=== PATIENT | male | born 1970 | race Caucasian/White ===

== ENCOUNTER 2017-07-19 14:31 | Inpatient (IN) | payer MEDICAID ==
[2017-07-19 14:34] VITALS: BP 190/93; PULSE 55; RESP 20; TEMP 97.3; O2SAT 100
[2017-07-19] MEDS ORDERED: SODIUM CHLOR 0.9% 1000 ML INJ 1,000 ML IV ONE ×2 (14:42→15:00)
--- NOTE | 2017-07-19 14:56 | PD ---
HPI . Stroke alert Chief Complaint: Stroke Alert Time Seen by Provider: 14:38 Travel History International Travel<30 days: No Contact w/Intl Traveler<30days: No Traveled to known affect area: No History of Present Illness HPI Patient presents ambulatory with the chief complaint of dizziness, nausea/ vomiting and left-sided weakness. Onset was 1 hour prior to presentation. Symptoms have persisted since that time. Symptoms are mild. He states that he has taken aspirin prior to presentation. There have been no modifying factors. He reports a history of hypertension and states that he is compliant with his antihypertensives. [facility] Past Medical History Medical History: Denies Significant Hx Past Surgical History Appendectomy: Yes Other Surgery: Yes (KNEE SURGERIES ) Social History Alcohol Use: No Tobacco Use: No Substance Use: No Allergies-Medications (Allergen,Severity, Reaction): Coded Allergies: Penicillins (Verified Allergy, Unknown, 07/19/17) Review of Systems Except as stated in HPI: all other systems reviewed are Neg Eyes: No: Blurred Vision HENT: Positive: Lightheadedness, No: Headaches Cardiovascular: No: Chest Pain or Discomfort Respiratory: No: Shortness of Breath Gastrointestinal: Positive: Nausea, Vomiting Neurologic: Positive: Weakness, Focal Abnormalities, No: Ataxia, Headache, Change in Mentation, Slurred Speech, Paresthesia Physical Exam Narrative GENERAL: Awake and alert. He does not look like he feels very well. SKIN: warm/dry. HEAD: Normocephalic. Atraumatic. EYES: Pupils equal and round. Extraocular movements are intact. No scleral icterus. No injection or drainage. ENT: No nasal bleeding or discharge. Mucous membranes pink and moist. NECK: Trachea midline. Full range of motion without pain.. CARDIOVASCULAR: Regular rate and rhythm. Heart sounds are normal. RESPIRATORY: No accessory muscle use. Clear to auscultation. Breath sounds equal bilaterally. MUSCULOSKELETAL: No obvious deformities. NEUROLOGICAL: Awake and alert. Very mild left-sided facial weakness with smiling. Wrinkling his forehead, closing his eyes and protruding his tongue are all symmetric. Services Manager strength on the left are 4+ out of 5 as compared to the right which is 5 out of 5. Leg strength is similar. He has very mild left lower extremity weakness. Babinski's are downgoing. When testing pronator drift, he slowly lowers his left arm but there is no pronator drift. PSYCHIATRIC: Appropriate mood and affect; insight and judgment normal. Data Data Last Documented VS Vital Signs Date Time Temp Pulse Resp B/P (MAP) Pulse Ox O2 Delivery O2 Flow Rate FiO2 07/19/17 14:34 97.3 55 20 190/93 (125) 100 Orders Orders Diet Npo (07/19/17 Dinner) Activity Bed Rest (07/19/17 ) Electrocardiogram (07/19/17 ) I-Stat Profile (07/19/17 14:42) Prothrombin Time / Inr (Pt) (07/19/17 14:42) Act Partial Throm Time (Ptt) (07/19/17 14:42) Complete Blood Count With Diff (07/19/17 14:42) Fibrinogen (07/19/17 14:42) Troponin I (07/19/17 14:42) Ua Includes Microscopic (07/19/17 14:42) Type And Screen (07/19/17 14:42) Ct Brain W/O Iv Contrast(Rout) (07/19/17 ) Consult Neurology (07/19/17 ) Blood Glucose (07/19/17 14:42) Ecg Monitoring (07/19/17 14:42) Neuro Checks Q2HX12,Q4H (07/19/17 14:42) Nursing Bedside Swallow Assess .ONCE (07/19/17 14:42) Iv Access Insert/Monitor (07/19/17 14:42) NPO (07/19/17 14:42) Oximetry (07/19/17 14:42) Resp Oxygen Nc Stroke (07/19/17 ) Sodium Chlor 0.9% 1000 Ml Inj (Ns 1000 M (07/19/17 14:42) Sodium Chlor 0.9% 1000 Ml Inj (Ns 1000 M (07/19/17 15:00) Cta Brain W Iv Contrast W 3d (07/19/17 14:46) Cta Neck W Iv Contrast W 3d (07/19/17 14:46) Iodixanol 320 Inj (Rad Ct) (Visipaque 32 (07/19/17 15:09) (Hub Use Only)Inp Phy Cons/Ref (07/19/17 ) Labs Laboratory Tests Test 07/19/17 14:45 White Blood Count 12.4 TH/MM3 Red Blood Count 5.24 MIL/MM3 Hemoglobin 15.4 GM/DL Bedside Hemoglobin 15.6 G/DL Hematocrit 44.9 % Bedside Hematocrit 46.0 % Mean Corpuscular Volume 85.7 FL Mean Corpuscular Hemoglobin 29.4 PG Mean Corpuscular Hemoglobin Concent 34.3 % Red Cell Distribution Width 13.3 % Platelet Count 321 TH/MM3 Mean Platelet Volume 8.1 FL Neutrophils (%) (Auto) 70.5 % Lymphocytes (%) (Auto) 21.2 % Monocytes (%) (Auto) 6.5 % Eosinophils (%) (Auto) 1.4 % Basophils (%) (Auto) 0.4 % Neutrophils # (Auto) 8.7 TH/MM3 Lymphocytes # (Auto) 2.6 TH/MM3 Monocytes # (Auto) 0.8 TH/MM3 Eosinophils # (Auto) 0.2 TH/MM3 Basophils # (Auto) 0.1 TH/MM3 CBC Comment DIFF FINAL Differential Comment Bedside Sodium 141 MMOL/L Bedside Potassium 4.6 MMOL/L Bedside Chloride 106 MMOL/L Bedside Blood Urea Nitrogen 18 MG/DL Bedside Creatinine 0.7 MG/DL Bedside Glucose 101 MG/DL [facility] Medical Screen Exam Complete: Yes Emergency Medical Condition: Yes Medical Record Reviewed: Yes (He has had no prior visits here) Differential Diagnosis Differential diagnosis includes but is not limited to TIA, CVA, brain tumor, migraine, anxiety Narrative Course Patient presents ambulatory with the chief complaint of dizziness, nausea/ vomiting and left-sided weakness. Onset was 1 hour prior to presentation. Symptoms have persisted since that time. Symptoms are mild. He states that he has taken aspirin prior to presentation. There have been no modifying factors. He reports a history of hypertension and states that he is compliant with his antihypertensives. The patient was seen in radiology by Dr. Soria. Critical Care Narrative Aggregate critical care time was 35 minutes. Time to perform other separately billable procedures was not included in the critical care time. My time did not include minutes spent treating any other patients simultaneously or on activities that did not directly contribute to the patient's treatment. The services I provided to this patient were to treat and/or prevent clinically significant deterioration due to possible stroke I provided critical care services requiring my management, as noted below: Chart data review, documentation time, medication orders and management, vital sign assessments/reviewing monitor data, ordering and reviewing lab tests, ordering and interpreting/reviewing x-rays and diagnostic studies, care of the patient and discussion of the patient with the admitting physicians Stroke Alert NIHSS NIH Stroke Scale Result: 4 NIHSS Time Completed: 14:39 Procedures Interpretation(s) EKG shows a normal sinus rhythm with no acute ischemic changes Physician Communication Physician Communication Dr. Soria was called immediately. He has requested a fluid bolus as well as a CTA of his head and neck. Those have all been ordered. He reports that he is on his way to see the patient. Diagnosis Diagnosis: Primary Impression: Left-sided weakness Admitting Physician Requests: Admit Condition: Stable Kacie Acosta MD Jul 19, 2017 14:56
--- NOTE | 2017-07-19 15:06 | RADRPT ---
EXAM DATE/TIME: 07/19/2017 14:53 [facility] COMPARISON: No previous studies available for comparison. INDICATIONS : Left sided weakness, facial droop RADIATION DOSE: 38.66 CTDIvol (mGy) This report was called by Stacey to Dr. Acosta at 1503 MEDICAL HISTORY : None SURGICAL HISTORY : None. ENCOUNTER: Initial ACUITY: 1 day PAIN SCALE: 0/10 LOCATION: cranial TECHNIQUE: Multiple contiguous axial images were obtained of the head. Using automated exposure control and adj ustment of the mA and/or kV according to patient size, radiation dose was kept as low as reasonably a chievable to obtain optimal diagnostic quality images. DICOM format image data is available electro nically for review and comparison. FINDINGS: CEREBRUM: The ventricles are normal for age. No evidence of midline shift, mass lesion, hemorrhage or acute in farction. No extra-axial fluid collections are seen. POSTERIOR FOSSA: The cerebellum and brainstem are intact. The 4th ventricle is midline. The cerebellopontine angle i s unremarkable. EXTRACRANIAL: The visualized portion of the orbits is intact. SKULL: The calvaria is intact. No evidence of skull fracture. CONCLUSION: No acute disease. Ramses Salomon MD on July 19, 2017 at 15:01 Board Certified Radiologist. This report was verified electronically.
[2017-07-19] MEDS ORDERED: IODIXANOL 320 MG/ML 10 ML VIAL (for Rad CT) IVCONTRAST ONE (15:09)
[2017-07-19 15:14] LABS: AUTOMATED NEUTROPHIL # 8.7 TH/MM3 (1.8-7.7); BASOPHIL # 0.1 TH/MM3 (0-0.2); BASOPHIL % 0.4 % (0.0-2.0); EOSINOPHIL # 0.2 TH/MM3 (0-0.4); EOSINOPHIL % 1.4 % (0.0-4.0); HEMATOCRIT 44.9 % (39.0-51.0); HEMOGLOBIN 15.4 GM/DL (13.0-17.0); LYMPH % 21.2 % (9.0-44.0); LYMPHOCYTE # 2.6 TH/MM3 (1.0-4.8); MEAN CELL VOLUME 85.7 FL (80.0-100.0); MEAN CORPUSCULAR HEMOGLOBIN 29.4 PG (27.0-34.0); MEAN CORPUSCULAR HGB CONC 34.3 % (32.0-36.0); MEAN PLATELET VOLUME 8.1 FL (7.0-11.0); MONO % 6.5 % (0.0-8.0); MONOCYTE # 0.8 TH/MM3 (0-0.9); NEUT % 70.5 % (16.0-70.0); PLATELET COUNT 321 TH/MM3 (150-450); RED BLOOD COUNT 5.24 MIL/MM3 (4.50-5.90); RED CELL DISTRIBUTION WIDTH 13.3 % (11.6-17.2); WHITE BLOOD COUNT 12.4 TH/MM3 (4.0-11.0)
--- NOTE | 2017-07-19 15:19 | RADRPT ---
EXAM DATE/TIME: 07/19/2017 14:53 [facility] COMPARISON: No previous studies available for comparison. INDICATIONS : Left sided weakness, facial droop IV CONTRAST: 71 cc Visipaque (iodixanol) IV ; Cumulative dose for multiple exams. RADIATION DOSE: 28.86 CTDIvol (mGy) ; Combined studies MEDICAL HISTORY : None SURGICAL HISTORY : None. ENCOUNTER: Initial ACUITY: 1 day PAIN SCALE: 0/10 LOCATION: cranial TECHNIQUE: Volumetric scanning was performed using a multi-row detector CT scanner. The data was post processed with a variety of visualization algorithms including full volume maximum intensity projection, multi -planar sliding thin slab reformation, curved planar reformation, and surface rendering techniques. Using automated exposure control and adjustment of the mA and/or kV according to patient size, radiat ion dose was kept as low as reasonably achievable to obtain optimal diagnostic quality images. DICO M format image data is available electronically for review and comparison. FINDINGS: Anterior circulation: Distal intracranial internal carotid arteries are patent with flow extending to the middle and anteri or cerebral arteries. There is no evidence for aneurysm, vessel truncation or stenosis, and no eviden ce for vascular malformation. Posterior circulation: Symmetric distal vertebral arteries with flow extending to basilar artery. There is no evidence for aneurysm, vessel truncation or stenosis, and no evidence for vascular malformation. CONCLUSION: 1. Unremarkable head CTA examination. Specifically, no evidence of large vessel occlusion. Samson Vinson MD on July 19, 2017 at 15:14 Board Certified Radiologist. This report was verified electronically.
[2017-07-19] MEDS: SODIUM CHLOR 0.9% 1000 ML INJ 1,000 ML IV SCH (15:22)
[2017-07-19 15:26] VITALS: PULSE 58; RESP 18; O2SAT 100
[2017-07-19 15:27] LABS: TROPONIN I LESS THAN 0.02 NG/ML (0.02-0.05)
--- NOTE | 2017-07-19 15:29 | HHI.HP ---
[facility] Service Family Medicine Primary Care Physician Unknown Admission Diagnosis Diagnoses: International Travel<30 Days: No Contact w/Intl Traveler<30days: No Known Affected Area: No History of Present Illness The patient is a pleasant 46 year old man brought to the ED for evaluation of lightheadedness and dizziness. The patient states he was driving to a job interview earlier today a little before 13:00 when he started to feel dizzy. He states this resolved until he arrived at that site and he began to feel more dizzy and lightheaded so he got back into his truck in the passenger side and called his . He states he must have lost consciousness in the truck and the next thing he remembers he was being driven to the ED. He remembers someone asking him to give them a smile. No one else was in the truck when he lost consciousness. His states that he was progressively taking longer to reply back to her over the phone until eventually he was not responding on the other line. His states earlier in the ED the patient was unable to move any of his extremities however at time of this evaluation he has markedly improved and currently he is able to move all extremities. He endorses mild left hand weakness. Denies right hand or leg weakness, and denies left lower extremity weakness. He states he has no prior history of a similar episode as this. Denies a history of seizures. He denies chest pain or palpitations today or yesterday. He has good PO intake of both solids and water earlier in the day and states he had a normal daily PO intake. He denies noticing any focal neuro deficit such as weakness or paraesthesias while driving to his job interview earlier today. He denies confusion. He states he does not take an aspirin daily. Him and his endorse his blood pressure being elevated recently as high as into the 150s /90s however nothing higher. Of note, his does state she noticed a very slight left-sided facial droop when initially coming into the ED. He endorses a headache currently. States the pain is moderate, diffuse and ache- like in nature. He states he does not usually get headaches. Denies visual changes; denies diplopia, blurry vision, loss of vision. 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 He states he was at a school basketball game a few years ago when the buzzer went off. He subsequently developed tinnitus for several months until he progressively lost hearing. He states he never had a formal evaluation of this. He reports normal hearing of his left ear. (Gigi Rios MD R2) Review of Systems Constitutional: DENIES: Fever, Chills, Change in appetite Eyes: DENIES: Blurred vision, Diplopia, Vision loss, Double Vision Ears, nose, mouth, throat: COMPLAINS OF: Hearing loss, Vertigo (Endorses some spinning of the room earlier in the ED, this has also resolved) Respiratory: DENIES: Cough, Wheezing, Shortness of breath Cardiovascular: DENIES: Chest pain, Palpitations Gastrointestinal: COMPLAINS OF: Nausea (Endorses some nausea occurring with his episode of lightheadedness), DENIES: Abdominal pain, Black stools, Bloody stools, Constipation, Diarrhea Genitourinary: DENIES: Dysuria Musculoskeletal: DENIES: Back pain, Neck pain Integumentary: DENIES: Rash Neurologic: COMPLAINS OF: Headache, Localized weakness, DENIES: Seizures, Speech Problems, Tremor (Gigi Rios MD R2) Past Family Social History Past Medical History HTN Bipolar disorder Sex addiction Past Surgical History Appendectomy Left knee surgery (Gigi Rios MD R2) Allergies: Coded Allergies: Penicillins (Verified Allergy, Unknown, 07/19/17) Family History Mother: HTN, [place] unknown age but reportedly not at a young age Father: unknown Social History Lives at home with his and four children Tobacco: never Etoh: none in the past two years, prior to two years ago reports he only drank on social occasions only and never any heavy drinking Illicit drug use: denies (Gigi Rios MD R2) Physical Exam Vital Signs Vital Signs Date Time Temp Pulse Resp B/P (MAP) Pulse Ox O2 Delivery O2 Flow Rate FiO2 07/19/17 15:26 58 18 100 Room Air 07/19/17 14:34 97.3 55 20 190/93 (125) 100 Physical Exam GENERAL: NAD, lying comfortably flat in bed NEURO: Alert. Normal speech. production associate II-XII intact with exception of loss of hearing on the right. Motor intact. Strength 5/5 throughout. Sensation intact to light touch throughout. Patellar reflexes 2+. Negative pronator drift. Finger to nose and heel to keene normal bilaterally. Negative babinski. SKIN: Warm and dry. No rashes or erythema. HEAD: Normocephalic. Atraumatic. EYES: PERRL. EOMI. No scleral icterus. No injection or drainage. ENT: No nasal drainage. Moist mucous membranes. NECK: Supple, trachea midline. No JVD. No carotid bruits. CARDIOVASCULAR: Regular rate and rhythm without murmurs, rubs, or gallops. Peripheral pulses 2+. Capillary refill < 2 seconds. RESPIRATORY: Breath sounds clear to auscultation anteriorly and equal bilaterally, without wheezes, rales, or rhonchi. No accessory muscle use. GASTROINTESTINAL: Abdomen soft, nontender, nondistended, normal BS. No organomegaly or masses. No rebound tenderness. No guarding. MUSCULOSKELETAL: No lower extremity edema. Normal range of motion. Laboratory Laboratory Tests Test 07/19/17 14:45 White Blood Count 12.4 Red Blood Count 5.24 Hemoglobin 15.4 Bedside Hemoglobin 15.6 Hematocrit 44.9 Bedside Hematocrit 46.0 Mean Corpuscular Volume 85.7 Mean Corpuscular Hemoglobin 29.4 Mean Corpuscular Hemoglobin Concent 34.3 Red Cell Distribution Width 13.3 Platelet Count 321 Mean Platelet Volume 8.1 Neutrophils (%) (Auto) 70.5 Lymphocytes (%) (Auto) 21.2 Monocytes (%) (Auto) 6.5 Eosinophils (%) (Auto) 1.4 Basophils (%) (Auto) 0.4 Neutrophils # (Auto) 8.7 Lymphocytes # (Auto) 2.6 Monocytes # (Auto) 0.8 Eosinophils # (Auto) 0.2 Basophils # (Auto) 0.1 CBC Comment DIFF FINAL Differential Comment Bedside Sodium 141 Bedside Potassium 4.6 Bedside Chloride 106 Bedside Blood Urea Nitrogen 18 Bedside Creatinine 0.7 Bedside Glucose 101 Troponin I LESS THAN 0.02 (Gigi Rios MD R2) Result Diagram: 07/19/17 144 Imaging Last 72 hours Impressions Neck CTA [id number] Signed Impressions: Service Date/Time: July 14:53 - CONCLUSION: 1. No significant carotid flow-limiting stenosis or dissection. 2. Dominant left vertebral artery without vertebral flow-limiting stenosis or dissection. Samson Vinson MD Head CTA [id number] Signed Impressions: Service Date/Time: July 14:53 - CONCLUSION: 1. Unremarkable head CTA examination. Specifically, no evidence of large vessel occlusion. Samson Vinson MD Head CT 07/19/17 0000 Signed Impressions: Service Date/Time: July 14:53 - CONCLUSION: No acute disease. Ramses Salomon MD (Gigi Rios MD R2) Caprini VTE Risk Assessment Caprini VTE Risk Assessment: Mod/High Risk (score >= 2) Caprini Risk Assessment Model Point Value = 1 Point Value = 2 Point Value = 3 Point Value = 5 Age 41-60 Minor surgery BMI > 25 kg/m2 Swollen legs Varicose veins or History of unexplained or recurrent spontaneous Oral contraceptives or hormone replacement Sepsis (< 1 month) Serious lung disease, including pneumonia (< 1 month) Abnormal pulmonary function Acute myocardial infarction Congestive heart failure (< 1 month) History of inflammatory bowel disease Medical patient at bed rest Age 61-74 Arthroscopic surgery Major open surgery (> 45 min) Laparoscopic surgery (> 45 min) Malignancy Confined to bed (> 72 hours) Immobilizing plaster cast Central venous access Age >= 75 History of VTE Family history of VTE Factor V Leiden Prothrombin [id number] Lupus anticoagulant Anticardiolipin antibodies Elevated serum homocysteine Heparin-induced thrombocytopenia Other congenital or acquired thrombophilia Stroke (< 1 month) Elective arthroplasty Hip, pelvis, or leg fracture Acute spinal cord injury (< 1 month) Prophylaxis Regimen Total Risk Factor Score Risk Level Prophylaxis Regimen 0-1 Low Early ambulation 2 Moderate Order ONE of the following: *Sequential Compression Device (SCD) *Heparin 5000 units SQ BID 3-4 Higher Order ONE of the following medications: *Heparin 5000 units SQ TID *Enoxaparin/Lovenox 40 mg SQ daily (WT < 150 kg, CrCl > 30 mL/min) *Enoxaparin/Lovenox 30 mg SQ daily (WT < 150 kg, CrCl > 10-29 mL/min) *Enoxaparin/Lovenox 30 mg SQ BID (WT < 150 kg, CrCl > 30 mL/min) AND/OR *Sequential Compression Device (SCD) 5 or more Highest Order ONE of the following medications: *Heparin 5000 units SQ TID (Preferred with Epidurals) *Enoxaparin/Lovenox 40 mg SQ daily (WT < 150 kg, CrCl > 30 mL/min) *Enoxaparin/Lovenox 30 mg SQ daily (WT < 150 kg, CrCl > 10-29 mL/min) *Enoxaparin/Lovenox 30 mg SQ BID (WT < 150 kg, CrCl > 30 mL/min) AND *Sequential Compression Device (SCD) (Gigi Rios MD R2) Assessment and Plan Assessment and Plan 46 year old man being admitted for further evaluation and management following likely a TIA/CVA. Code Status Full code Discussed Condition With Dr. Karla Menjivar (Gigi Rios MD R2) Attending Attestation The patient has been seen and examined. The chart and all resident notes have been reviewed. I agree that inpatient care is appropriate and that a two midnight stay is expected for the reasons documented in the resident history and physical. I have discussed this with the resident and certify the resident s order for inpatient admission. (Kacie Helton MD) Problem List: (1) Left-sided weakness ICD Codes: R53.1 - Weakness Status: Acute Plan: The patient has a history earlier today of dizziness and lightheadedness associated with loss of consciousness and was noted to have left-sided weakness during initial eval here in the ED as well as per , slight left sided facial droop Si/sxs concerning mostly for TIA/CVA, consider also seizure activity, syncope, atypical migraine aura, toxic or metabolic disturbance, medication adverse effect, MS CT head with no acute disease Head and neck CTA are unremarkable Electrolytes are within normal limits EKG significant for sinus bradycardia with HR of 54 bpm Obtain MRI brain with and without Neurology consulted Hypercoagulable screen ordered per Dr. Soria given the patient's young age Continue aspirin 325 mg po daily IVF hydration with NS at 75 cc/hr Neuro checks q4h HOB flat for 12 hours Bedside swallow assessment and if patient passes, OK for heart healthy diet once HOB no longer flat Allow for permissive hypertension for 24 hours up to 220/120, onset of symptoms likely around 12:00 or 13:00 today Vasotec 1/25 mg IV prn BP > 220/120 Consult PT/OT/ST and case management Check sed rate, vitamin studies, lipid profile, A1c, ARTURO (2) Bipolar disorder ICD Codes: F31.9 - Bipolar disorder, unspecified Plan: Restart home seroquel when taking PO (3) Depression ICD Codes: F32.9 - Major depressive disorder, single episode, unspecified Plan: Restart home zoloft when taking PO (4) Nutrition, metabolism, and development symptoms ICD Codes: R63.8 - Other symptoms and signs concerning food and fluid intake Plan: Fluids: NS at 75 cc/hr Electrolytes: within normal limits Nutrition: NPO DVT ppx: Heparin 5,000 units sq q8h (Gigi Rios MD R2) Physician Certification 2 Midnight Certification Type: Admission for Inpatient Services Order for Inpatient Services The services are ordered in accordance with Medicare regulations or non- Medicare payer requirements, as applicable. In the case of services not specified as inpatient-only, they are appropriately provided as inpatient services in accordance with the 2-midnight benchmark. Estimated LOS (days): 2 days is the estimated time the patient will need to remain in the hospital, assuming treatment plan goals are met and no additional complications. Post-Hospital Plan: Not yet determined (Gigi Rios MD R2) Gigi Rios MD R2 Jul 19, 2017 15:29 Kacie Helton MD Jul 20, 2017 16:59
[2017-07-19 15:30] LABS: INTERNATIONAL NORMALIZED RATIO 1.1 RATIO; PROTHROMBIN TIME - PATIENT 11.3 SEC (9.8-11.6)
--- NOTE | 2017-07-19 15:35 | RADRPT ---
EXAM DATE/TIME: 07/19/2017 14:53 [facility] COMPARISON: No previous studies available for comparison. INDICATIONS : Left sided weakness, facial droop IV CONTRAST: 71 cc Visipaque (iodixanol) IV ; Cumulative dose for multiple exams. RADIATION DOSE: 28.86 CTDIvol (mGy) ; Combined studies MEDICAL HISTORY : None SURGICAL HISTORY : None. ENCOUNTER: Initial ACUITY: 1 day PAIN SCALE: 0/10 LOCATION: cranial Elevated flow velocities and ICA/CCA ratios have been found to correlate with increased degrees of vessel stenosis, calculated as percentage of diameter relative to a normal segment of distal ICA/CCA. TECHNIQUE: Volumetric scanning was performed using a multirow detector CT scanner. The data was post processed with a variety of visualization algorithms including full-volume maximum intensity projection, multip lanar sliding thin-slab reformation, curved-planar reformation, and surface-rendering techniques. Us ing automated exposure control and adjustment of the mA and/or kV according to patient size, radiatio n dose was kept as low as reasonably achievable to obtain optimal diagnostic quality images. DICOM f ormat image data is available electronically for review and comparison. FINDINGS: AORTIC ARCH: There is a three-vessel origin of the great vessels from the aorta. No evidence of ostial narrowing. RIGHT CAROTID: The common carotid artery is intact. The carotid bulb has a normal configuration without ulceration o r narrowing. The internal carotid artery lumen is smooth without stenosis. The external carotid nguyen ry is intact. LEFT CAROTID: The common carotid artery is intact. The carotid bulb has a normal configuration without ulceration or narrowing. The internal carotid artery lumen is smooth without stenosis. The external carotid ar roderick is intact. VERTEBRALS: Dominant left vertebral artery. No stenotic lesions are seen. CONCLUSION: 1. No significant carotid flow-limiting stenosis or dissection. 2. Dominant left vertebral artery without vertebral flow-limiting stenosis or dissection. Samson Vinson MD on July 19, 2017 at 15:28 Board Certified Radiologist. This report was verified electronically.
--- NOTE | 2017-07-19 15:49 | MB ---
cc: Hermes Soria MD DATE: 07/19/2017 REASON FOR CONSULTATION: Stroke alert. HISTORY OF PRESENT ILLNESS: A 46-year-old right-handed man with history of hypertension, otherwise been very healthy, does not usually take an aspirin a day and about 1:00 p.m., he had the onset of lightheadedness. He felt as if he was staggering. He did not notice any left-sided weakness. He had difficulty getting in the car. He was noted to have left facial droop and left-sided weakness, about a 4/5 to 4.5/5 according to the ER doctor, when talking to me. He went into CT. I examined him in CT and he had regained normal strength in the left side except for a left facial droop, mild. He noticed some vertigo evidently and also some spinning of the room visually while he was in the ER. He had a headache in the back of his head, moderate. He really does not get headaches. REVIEW OF SYSTEMS: He denied any chest pain or palpitations. He denies any history colon hypercholesterolemia, diabetes, CO, CABG, stent, angioplasty, AFib, Coumadin; renal, hepatic, or pulmonary disease; thyroid disease, lupus, ulcer, cancer, stroke. SOCIAL HISTORY: Nonsmoker or drinker. No drugs. Lives with his . ALLERGIES: PENICILLIN. PHYSICAL EXAMINATION: VITAL SIGNS: He is sinus rhythm, afebrile, heart rate 55, respirations 20, blood pressure 190/93-187/90. NECK: There were no carotid bruits. HEART: Regular rhythm. I did not detect a murmur. NEUROLOGIC: Pupils are equal. Visual ma are full. Face shows a left mild facial droop with normal sensation. Tongue was midline. There is no drift. He has normal strength in the upper and lower extremities bilaterally including deltoid, triceps, finger extensors, fast finger movements on the left, iliopsoas, tibialis anterior. Toes are downgoing bilaterally. DTRs are trace throughout. Pinprick was intact face, arm, and leg bilaterally. Speech is fluent. He is not aphasic. LABORATORY DATA: CBC shows a white count of 12.4, otherwise normal. Basic metabolic profile is normal. Troponin is pending. Coags are pending. IMAGING STUDIES: CAT scan of the brain, preliminary normal. CTA of the neck and [place] of [place] also preliminary negative. Official report on the CT of the brain was normal. I did not see any carotid or vertebrobasilar stenosis intracranially or extracranially, although the official reports are pending. IMPRESSION AND PLAN: It looked like he has had a small stroke. We will check an MRI of the brain, echocardiogram, Holter. For now, we will treat him with aspirin 325 and give him IV hydration, keep his head of bed flat and do a stroke workup. Considering his age, we will do a hypercoagulable screen. He has had quite a good recovery and improvement in the emergency room at this time. I would give him an NIH stoke scale of a 1. MD CHARMAINE Wilkins/JOSEPH , 03:27 PM , 03:48 PM
[2017-07-19] MEDS: ASPIRIN EC 325 MG TABEC PO SCH (15:52)
[2017-07-19] MEDS ORDERED: CLON.5 PO (16:30)
[2017-07-19] MEDS ORDERED: BUPR150XL PO (16:30)
[2017-07-19] MEDS ORDERED: NALT50TA3 PO (16:30)
[2017-07-19] MEDS ORDERED: SERO50TA PO (16:30)
[2017-07-19] MEDS ORDERED: ZOLO100T PO (16:30)
[2017-07-19] MEDS ORDERED: WELLTAB39 PO (16:30)
[2017-07-19] MEDS ORDERED: ENALAPRILAT 1.25 MG/ML VIAL IV PUSH PRN (16:45)
[2017-07-19] MEDS ORDERED: DEXTROSE 50% IN WATER 50 ML VIAL(D50) IV PUSH PRN (16:45)
[2017-07-19] MEDS ORDERED: SODIUM CHLORIDE 0.9% FLUSH 10 ML FLUSH IV FLUSH PRN (16:45)
[2017-07-19] MEDS ORDERED: GLUCAGON 1 MG/ML VIAL OTHER PRN (16:45)
[2017-07-19] MEDS ORDERED: GADODIAMIDE PF 287 MG/ML 20 ML VIAL (for RAD MRI) IVCONTRAST ONE (16:57)
[2017-07-19] MEDS ORDERED: GADODIAMIDE PF 287 MG/ML 5 ML VIAL (for RAD MRI) IVCONTRAST ONE (16:57)
[2017-07-19] MEDS: INSULIN ASPART SUPPLEMENTAL SCALE SQ SCH ×2 (17:00→21:00)
--- NOTE | 2017-07-19 17:10 | RADRPT ---
EXAM DATE/TIME: 07/19/2017 16:42 [facility] COMPARISON: No previous studies available for comparison. INDICATIONS : CVA. Left sided weakness that started this afternoon. CONTRAST: 24 cc Omniscan (gadodiamide) IV MEDICAL HISTORY : Hypertension. SURGICAL HISTORY : Appendectomy. Knee sx. ENCOUNTER: Initial ACUITY: 1 day PAIN SCORE: 7/10 LOCATION: Bilateral cranial TECHNIQUE: Multiplanar, multisequence MRI of the brain was performed both prior to and following the administrat ion of paramagnetic contrast. FINDINGS: CEREBRUM: The ventricles are normal for age. No evidence of midline shift, mass lesion, hemorrhage or acute in farction. No extraaxial fluid collections are seen. The pituitary gland and suprasellar cistern are normal in configuration. WHITE MATTER: No significant signal abnormalities are seen in the white matter. POSTERIOR FOSSA: The cerebellum and brainstem are intact. The 4th ventricle is midline. The cerebellopontine angle is unremarkable. The cerebellar tonsils are normal in position. DIFFUSION IMAGING: No focal areas of restricted diffusion are seen. No evidence of acute infarction. EXTRACRANIAL: The visualized portions of the orbits and paranasal sinuses are unremarkable. POST-CONTRAST: No abnormal areas of parenchymal or dural enhancement. No evidence of blood-brain barrier breakdown. CONCLUSION: 1. Normal unenhanced and enhanced MRI of the brain. 2. No evidence of acute infarct, hemorrhage, mass, edema or enhancing lesions. Ramses Salomon MD on July 19, 2017 at 17:06 Board Certified Radiologist. This report was verified electronically.
[2017-07-19] MEDS ORDERED: ACETAMINOPHEN 1000 MG/100 ML 65 ML IV PRN (17:15)
--- NOTE | 2017-07-19 17:41 | RADRPT ---
EXAM DATE/TIME: 07/19/2017 17:20 [facility] COMPARISON: No previous studies available for comparison. INDICATIONS : Left shoulder pain post fall. MEDICAL HISTORY : Hypertension. SURGICAL HISTORY : Appendectomy. ENCOUNTER: Initial ACUITY: 1 day PAIN SCORE: 7/10 LOCATION: Left shoulder FINDINGS: Multiple view examination of the left shoulder demonstrates no evidence of fracture or dislocation. The glenohumeral and acromioclavicular joints are maintained. There is normal range of motion betwee n internal and external rotation. Bony mineralization is normal. CONCLUSION: No evidence of acute process or significant arthropathy. Ramses Salomon MD on July 19, 2017 at 17:39 Board Certified Radiologist. This report was verified electronically.
[2017-07-19 18:03] VITALS: BP 175/88; PULSE 57; RESP 18; O2SAT 98
[2017-07-19] MEDS: HEPARIN SODIUM - SQ 10,000 UNITS/ML VIAL SQ SCH (18:08)
[2017-07-19 18:23] LABS: ALT (GPT) 39 U/L (12-78); AST (GOT) 21 U/L (15-37); BICARBONATE 24.9 MEQ/L (21.0-32.0); BLOOD UREA NITROGEN 16 MG/DL (7-18); CALCIUM 8.2 MG/DL (8.5-10.1); CHLORIDE 111 MEQ/L (98-107); CREATININE 0.78 MG/DL (0.60-1.30); GLOMERULAR FILTRATION RATE 107 ML/MIN (>89); GLUCOSE,RANDOM 96 MG/DL (74-106); SODIUM (NA) 142 MEQ/L (136-145)
[2017-07-19 18:26] LABS: ALKALINE PHOSPHATASE 74 U/L (45-117); TOTAL BILIRUBIN ADULT 0.5 MG/DL (0.2-1.0); TOTAL PROTEIN 7.6 GM/DL (6.4-8.2)
[2017-07-19 19:08] LABS: HEMOGLOBIN A1C 4.8 % (4.3-6.0)
[2017-07-19 20:00] VITALS: BP 111/64; PULSE 64; RESP 18; TEMP 97.3; O2SAT 84
[2017-07-19] MEDS: NALTREXONE HCL 50 MG TAB PO SCH (21:32)
[2017-07-19] MEDS: SODIUM CHLORIDE 0.9% FLUSH 10 ML FLUSH IV FLUSH SCH (21:33)
[2017-07-19 21:35] VITALS: PULSE 64
[2017-07-19 23:32] LABS: BILIRUBIN, URINE NEG (NEG); BLOOD, URINE NEG (NEG); GLUCOSE,URINE NEG (NEG); KETONE, URINE NEG (NEG); NITRITE,URINE NEG (NEG); PH, URINE 6.5 (5.0-8.5); URINE COLOR YELLOW (YELLW/STRAW); URINE LEUKOCYTE ESTERASE NEG (NEG)
[2017-07-20] VITALS: BP 160/72; PULSE 54; RESP 18; TEMP 97.7; O2SAT 94
[2017-07-20] MEDS: HEPARIN SODIUM - SQ 10,000 UNITS/ML VIAL SQ SCH ×3 (01:19→16:41)
[2017-07-20] MEDS: SODIUM CHLOR 0.9% 1000 ML INJ 1,000 ML IV SCH ×3 (04:52→22:35)
[2017-07-20 05:00] VITALS: BP 177/76; PULSE 54; RESP 18; TEMP 97.6; O2SAT 94
--- NOTE | 2017-07-20 07:53 | HHI.PR ---
Subjective Remarks sr Objective Vital Signs Date Time Temp Pulse Resp B/P (MAP) Pulse Ox O2 Delivery O2 Flow Rate FiO2 07/20/17 05:00 97.6 54 18 177/76 (109) 94 07/20/17 00:00 97.7 54 18 160/72 (101) 94 07/19/17 21:35 64 07/19/17 20:00 97.3 64 18 111/64 (80) 84 07/19/17 18:52 07/19/17 18:03 57 18 175/88 (117) 98 Room Air 07/19/17 15:26 58 18 100 Room Air 07/19/17 14:34 97.3 55 20 190/93 (125) 100 I/O 07/19/17 07/19/17 07/19/17 07/20/17 07/20/17 07/20/17 06:59 14:59 22:59 06:59 14:59 22:59 Intake Total 1000 ml Output Total 350 ml Balance -350 ml 1000 ml Intake IV Total 1000 ml Output Urine Total 350 ml # Voids 3 Result Diagram: 07/19/17 1445 07/19/17 1743 Objective Remarks face sym nl speech 5/5 bue and ble Assessment and Plan Assessment and Plan imp mri and ctax2 nl major tia less likely complicated migraine needs josey and loop asa for now fu ldl hyper labds he can dc if josey neg and loop in check Hermes Aguayo MD Jul 20, 2017 07:52
[2017-07-20 08:00] VITALS: BP 160/83; PULSE 58; RESP 20; TEMP 98.1; O2SAT 93
[2017-07-20] MEDS: INSULIN ASPART SUPPLEMENTAL SCALE SQ SCH ×4 (08:00→21:00)
[2017-07-20 08:18] LABS: CHOLESTEROL/ HDL RATIO 7.05 RATIO; FOLATE 19.3 NG/ML (3.1-17.5); FREE T4 0.75 NG/DL (0.76-1.46); HDL CHOLESTEROL 28.5 MG/DL (40.0-60.0)
[2017-07-20] MEDS: SODIUM CHLORIDE 0.9% FLUSH 10 ML FLUSH IV FLUSH SCH ×2 (09:10→22:34)
[2017-07-20] MEDS: ASPIRIN EC 325 MG TABEC PO SCH (09:10)
[2017-07-20 10:33] VITALS: O2SAT 96
--- NOTE | 2017-07-20 10:48 | MB ---
cc: Abran Robert MD DATE: 07/20/2017 REASON FOR CONSULTATION: Transesophageal echo and loop recorder as requested by Dr. Soria of neurology. CHIEF COMPLAINT: The patient came in for a stroke. HISTORY OF PRESENT ILLNESS: Arnulfo Yancey is a 46-year-old man who is followed at [facility], but does not know the name of the provider there. He has been on hypertension medications, it sounds like Amlodipine 5 mg daily, but ran out a week ago. He came into the hospital as a stroke alert with the onset of lightheadedness, some staggering and some left-sided weakness and left facial droop. Symptoms rapidly improved after he arrived. He denies any angina. Denies any shortness of breath. As mentioned, he has got a prior history of hypertension. Denies any other medical illnesses. ALLERGIES: PENICILLIN. PAST SURGICAL HISTORY: Includes appendectomy and 3 left knee operations. FAMILY HISTORY: Mother had hypertension and of asthma. Father had Crohn's disease. He has 3 sisters who are alive and well. 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 She is with 4 children. He does not smoke and does not drink anything significantly. PHYSICAL EXAMINATION: GENERAL: Shows a robust-appearing, white male. He is hypertensive. VITAL SIGNS: Charted. HEENT: Unremarkable. NECK: No JVD. No bruits. CHEST: Clear to auscultation. CARDIAC: Exam shows S1, S2. Regular rate and rhythm. No murmurs, rubs or gallops. ABDOMEN: Soft and nontender. EXTREMITIES: No clubbing, cyanosis or edema. His pulses all seemed to be intact. LABORATORY DATA: His EKG shows sinus bradycardia at 54 beats per minute, no acute ST-T wave changes. White count is elevated at 12,400, hematocrit is normal. Troponin was negative. Cholesterol 201, HDL 28.5, LDL 123, triglycerides 246. TSH is normal. Creatinine is 0.78. IMPRESSION: Dr. Soria feels the patient has had a small stroke and has requested a transesophageal echo and a loop recorder. PLAN: I have obtained informed consent for the transesophageal echo and loop recorder. He is n.p.o., so will try to get this scheduled today some time. The patient is agreeable. MD AUGUST South/OSCAR , 10:30 AM , 10:46 AM
[2017-07-20] MEDS ORDERED: SODIUM CHLORID 0.9% 500 ML IV PRN (11:45)
[2017-07-20] MEDS ORDERED: POVIDONE IODINE 5% (ANTISEPSIS KIT) 4 APPLICATIONS EACH NARE PRN (11:45)
[2017-07-20] MEDS ORDERED: CHLORHEXIDINE GLUCONATE 2 % 1 PACK (2 CLOTHS) TOPICAL PRN (11:45)
[2017-07-20] MEDS ORDERED: LACTATED RINGER'S 1000 ML IV PRN (11:45)
[2017-07-20] MEDS ORDERED: METOPROLOL TARTRATE 25 MG TAB PO PRN (11:45)
[2017-07-20] MEDS ORDERED: POVIDONE IODINE 5% (ANTISEPSIS KIT) 4 APPLICATIONS EACH NARE SCH (13:30)
[2017-07-20] MEDS ORDERED: MUPIROCIN 2% OINT 1 APPLIC/GM SYR NASAL SCH (13:30)
[2017-07-20] MEDS ORDERED: VANCOMYCIN 1000 MG/NS 250 ML IV SCH ×2 (13:30)
[2017-07-20] MEDS ORDERED: CHLORHEXIDINE GLUCONATE 2 % 1 PACK (2 CLOTHS) TOPICAL SCH (13:30)
[2017-07-20] MEDS: NS 1000 ML IV SCH (13:30)
--- NOTE | 2017-07-20 13:31 | MP ---
cc: Abran Robert MD DATE OF OPERATION: 07/20/2017 PREOPERATIVE DIAGNOSIS: Cerebrovascular accident of unknown etiology, suspect possible atrial fibrillation. POSTOPERATIVE DIAGNOSIS: Cerebrovascular accident of unknown etiology, suspect possible atrial fibrillation. PROCEDURE PERFORMED: Insertion of insertable loop recorder. DESCRIPTION OF PROCEDURE: The patient gave informed consent. Using 1% lidocaine for local anesthesia and using the sheath insertion kit, the left fourth intercostal space was identified and using the kit, loop recorder was inserted without difficulty using 1% lidocaine for local anesthesia. The patient tolerated the procedure well. Steri-Strips were applied. ADDENDUM: The device is a [employer] Reveal LINQ, model LNQ11, serial number [id number]. The R-wave was 0.56 millivolts. Abran Robert MD VEW/JEREMI , 01:24 PM , 01:30 PM
[2017-07-20] MEDS ORDERED: GADODIAMIDE PF 287 MG/ML 20 ML VIAL (for RAD MRI) IV PUSH ONE (14:25)
--- NOTE | 2017-07-20 14:36 | OTSOAPIP ---
TIME SESSION COMPLETED: 1330 TREATMENT TIME: 0 MINS. CHART REVIEWED. ATTEMPTED TO SEE PATIENT X2, PATIENT WAS OFF THE UNIT FOR A PROCEDURE. PLAN: WILL SEE WHEN ABLE OR NEXT TREATMENT DAY Therapist: HERNAN MOODY/Mely Signature on file
--- NOTE | 2017-07-20 16:13 | RADRPT ---
EXAM DATE/TIME: 07/20/2017 14:18 COMPARISON: MRI BRAIN W & W/O CONTRAST, July 19, 2017, 16:42. INDICATIONS : CVA. Left sided weakness. CONTRAST: 20 cc Omniscan (gadodiamide) IV MEDICAL HISTORY : Hypertension. SURGICAL HISTORY : Appendectomy. Knee surgery. ENCOUNTER: Initial ACUITY: 2 day PAIN SCORE: 3/10 LOCATION: head FINDINGS: There is good visualization of the superficial and deep cerebral veins without thrombosis. CONCLUSION: Negative for venous thrombosis. Lyle Son MD FACR on July 20, 2017 at 16:10 Board Certified Radiologist. This report was verified electronically.
[2017-07-20] MEDS: KETOROLAC TROMETHAMINE 60 MG/2 ML (IM) VIAL IM PRN ×2 (16:40→22:38)
[2017-07-20] MEDS: ATORVASTATIN 40 MG TAB PO SCH (16:46)
--- NOTE | 2017-07-20 17:05 | HHI.FPPN ---
Subjective Subjective Patient seen and examined with the resident team. Case reviewed and discussed. Please refer to resident H&P for further details regarding HPI, ROS, past medical and surgical history, family and social history. In summary, patient is a 46-year-old male who presented with acute onset of left -sided weakness and left facial droop with a syncopal episode. Patient was a stroke alert was brought into the emergency room. He was evaluated by neurology in the CT scan. Patient is seen in the bedside after his CINDI and loop recorder had been placed. He reports that his symptoms have returned back to baseline neurologically. His only complaint is left shoulder pain. He is concerned that he may have had a traumatic injury when he had a syncopal episode prior to admission. [facility] Objective Objective Last Impressions Head/Brain Mag Res Venography 07/20/17 0000 Signed Impressions: Service Date/Time: Thursday, July 20, 2017 14:18 - CONCLUSION: Negative for venous thrombosis. Lyle Son MD FACR Shoulder X-Ray 07/19/17 1646 Signed Impressions: Service Date/Time: July 17:20 - CONCLUSION: No evidence of acute process or significant arthropathy. Ramses Salomon MD Brain MRI 07/19/17 1522 Signed Impressions: Service Date/Time: July 16:42 - CONCLUSION: 1. Normal unenhanced and enhanced MRI of the brain. 2. No evidence of acute infarct, hemorrhage, mass, edema or enhancing lesions. Ramses Salomon MD Neck CTA 07/19/17 1446 Signed Impressions: Service Date/Time: July 14:53 - CONCLUSION: 1. No significant carotid flow-limiting stenosis or dissection. 2. Dominant left vertebral artery without vertebral flow-limiting stenosis or dissection. Samson Vinson MD Head CTA 07/19/17 1446 Signed Impressions: Service Date/Time: July 14:53 - CONCLUSION: 1. Unremarkable head CTA examination. Specifically, no evidence of large vessel occlusion. Samson Vinson MD Head CT 07/19/17 0000 Signed Impressions: Service Date/Time: July 14:53 - CONCLUSION: No acute disease. Ramses Salomon MD Laboratory Tests - Abnormals Test 07/19/17 17:43 07/19/17 23:00 07/20/17 06:56 Calcium Level 8.2 MG/DL Chloride Level 111 MEQ/L Urine Specific [place] 1.036 Triglycerides Level 246 MG/DL Cholesterol Level 201 MG/DL LDL Cholesterol 123 MG/DL HDL Cholesterol 28.5 MG/DL Folate 19.3 NG/ML Free Thyroxine 0.75 NG/DL Vital Signs 07/19/17 07/19/17 07/19/17 07/19/17 18:03 18:52 20:00 21:35 Temp 97.3 Pulse 57 64 64 Resp 18 18 B/P (MAP) 175/88 (117) 111/64 (80) Pulse Ox 98 84 O2 Delivery Room Air 07/20/17 07/20/17 07/20/17 07/20/17 00:00 05:00 08:00 10:33 Temp 97.7 97.6 98.1 Pulse 54 54 58 Resp 18 18 20 B/P (MAP) 160/72 (101) 177/76 (109) 160/83 (108) Pulse Ox 94 94 93 96 FiO2 21 Physical exam GENERAL: Well-developed and well-nourished, NAD, sitting up in bed SKIN: Warm and dry. No rashes or lesions HEAD: Normocephalic. Atraumatic EYES: No scleral icterus. No injection or drainage. ENT: OP clear. MMM. NECK: Supple, trachea midline. No JVD or lymphadenopathy. CARDIOVASCULAR: Regular rate and rhythm without audible murmurs, gallops, or rubs. RESPIRATORY: Breath sounds equal and clear to auscultation bilaterally. No accessory muscle use. GASTROINTESTINAL: Abdomen soft, non-tender, nondistended. Normoactive bowel sounds. MUSCULOSKELETAL: No cyanosis, or edema. No calf tenderness. Patient is able to abduct the left arm just below 90 limited by pain. Equal distal pulses bilaterally. There is tenderness over the AC joint and posteriorly to the shoulder joint. BACK: Nontender without obvious deformity. No CVA tenderness. Neuro: Awake and alert, normal speech, normal gait. Cranial nerves are grossly intact. Strength is 5 out of 5 4 extremities. Motor and sensation are intact and equal bilaterally. Normal carcass splitter strength bilaterally Assessment Assessment 46-year-old male admitted with: Acute neurologic change, suspect TIA Hypertension Bipolar disorder Syncopal episode Left shoulder pain, suspect traumatic injury PLAN PLAN Stroke protocol, neuro checks Status post permissive hypertension MRV pending Status post CINDI with implantable loop recorder High intensity statin, full dose aspirin Hypercoagulable panel is pending We will obtain MRI of the shoulder to rule out ligamentous injury Patient seen and examined. Case reviewed and discussed. Agree with plan of care as discussed with me and documented in the resident note. Kacie Helton MD Jul 20, 2017 17:05
--- NOTE | 2017-07-20 18:11 | ECHRPT ---
Indication: CVA/TIA CONCLUSIONS BP: / HR: Rhythm: Technical Quality: Medications Complications Proc. Components FINDINGS LEFT VENTRICLE Normal left ventricular size and wall thickness. The left ventricular systolic function is normal wi th an estimated ejection fraction in the range of 60-65%. Left ventricular diastolic function parameters a re normal. RIGHT VENTRICLE Normal right ventricular size and systolic function. LEFT ATRIUM The left atrial size is normal. RIGHT ATRIUM The right atrial size is normal. ATRIAL APPENDAGES Left atrial appendage not well visualized. ATRIAL SEPTUM Normal atrial septal thickness without atrial level shunting by limited color doppler interrogation. Bubble study is negative. AORTA The aortic root and proximal ascending aorta are normal in size on limited imaging. MITRAL VALVE Structurally normal mitral valve. No mitral valve stenosis or regurgitation. AORTIC VALVE Trileaflet aortic valve. No aortic valve stenosis or regurgitation. TRICUSPID VALVE Structurally normal tricuspid valve. No tricuspid valve stenosis or regurgitation. VESSELS The inferior vena cava is normal in size. PULMONARY VALVE No pulmonary valve regurgitation or stenosis. PERICADIUM No pericardial effusion. Abran Robert MD (Electronically Signed) Final Date:20 July 2017 18:09
[2017-07-20 20:00] VITALS: BP 160/85; PULSE 57; PULSE 59; RESP 18; TEMP 97.8; O2SAT 97
[2017-07-20] MEDS: NALTREXONE HCL 50 MG TAB PO SCH (22:36)
[2017-07-21] VITALS (7 sets, daily range): BP systolic 100–178; BP diastolic 55–79; PULSE 50–61; RESP 16–18; TEMP 97.3–98; O2SAT 95–99
[2017-07-21] MEDS: HEPARIN SODIUM - SQ 10,000 UNITS/ML VIAL SQ SCH ×4 (01:14→23:48)
[2017-07-21] MEDS: KETOROLAC TROMETHAMINE 60 MG/2 ML (IM) VIAL IM PRN ×3 (04:50→23:46)
[2017-07-21] MEDS: INSULIN ASPART SUPPLEMENTAL SCALE SQ SCH ×4 (08:00→21:00)
[2017-07-21] MEDS: ASPIRIN EC 325 MG TABEC PO SCH (08:48)
[2017-07-21] MEDS: ATORVASTATIN 40 MG TAB PO SCH (08:48)
[2017-07-21] MEDS: SODIUM CHLORIDE 0.9% FLUSH 10 ML FLUSH IV FLUSH SCH ×2 (09:00→23:44)
--- NOTE | 2017-07-21 09:14 | RADRPT ---
EXAM DATE/TIME: 07/21/2017 07:46 [facility] COMPARISON: SHOULDER LEFT COMPLETE (>2VWS), July 19, 2017, 17:20. INDICATIONS : Left shoulder pain. MEDICAL HISTORY : Hypertension. SURGICAL HISTORY : Appendectomy. Knee repair. ENCOUNTER: Initial ACUITY: 1 day PAIN SCORE: 4/10 LOCATION: Left shoulder TECHNIQUE: Multiplanar, multisequence MRI examination was performed without contrast. FINDINGS: ROTATOR CUFF: There is a 1 cm full thickness tear along the distal supraspinatus located posteriorly. There is mild thinning and tendinopathy involving the supraspinatus, infraspinatus and subscapularis tendons which are intact. The teres minor tendon is intact as well. infraspinatus, subscapularis, LABRUM: Labrum is within normal limits. MARROW/CARTILAGE: Bone marrow signal is homogeneous. Glenohumeral joint articular cartilage is within normal limits. OTHER: There is marked hypertrophy and edema involving the acromioclavicular joint. Acromion is Type 1 (flat ). Proximal biceps tendon is intact. CONCLUSION: 1. 1 cm full thickness tear involving the distal supraspinatus tendon located posteriorly. 2. Mild tendinopathy and thinning of the rotator cuff tendons. 3. Marked hypertrophy and edema involving the acromioclavicular joint. Arnulfo Pham MD on July 21, 2017 at 9:08 Board Certified Radiologist. This report was verified electronically.
--- NOTE | 2017-07-21 09:18 | EKG ---
Date Performed: 07/19/2017 Time Performed: 15:17:17 PTAGE: 46 years EKG: SINUS BRADYCARDIA BORDERLINE RIGHT AXIS DEVIATION POSSIBLE RIGHT VENTRICULAR CONDUCTION DEL AY BORDERLINE ECG NO PREVIOUS TRACING DOCTOR: Klaus Earl Interpretating Date/Time 07/21/2017 09:13:22
[2017-07-21 09:24] LABS: BASOPHIL % 0.5 % (0.0-2.0); EOSINOPHIL # 0.1 TH/MM3 (0-0.4); EOSINOPHIL % 1.7 % (0.0-4.0); HEMATOCRIT 44.1 % (39.0-51.0); LYMPH % 22.8 % (9.0-44.0); LYMPHOCYTE # 1.7 TH/MM3 (1.0-4.8); MEAN CELL VOLUME 86.4 FL (80.0-100.0); MEAN CORPUSCULAR HEMOGLOBIN 29.5 PG (27.0-34.0); MEAN CORPUSCULAR HGB CONC 34.1 % (32.0-36.0); MEAN PLATELET VOLUME 8.3 FL (7.0-11.0); MONO % 6.5 % (0.0-8.0); MONOCYTE # 0.5 TH/MM3 (0-0.9); NEUT % 68.5 % (16.0-70.0); PLATELET COUNT 266 TH/MM3 (150-450); WHITE BLOOD COUNT 7.3 TH/MM3 (4.0-11.0)
[2017-07-21 10:08] LABS: ALBUMIN 3.9 GM/DL (3.4-5.0); ALKALINE PHOSPHATASE 75 U/L (45-117); ALT (GPT) 40 U/L (12-78); AST (GOT) 18 U/L (15-37); BICARBONATE 25.8 MEQ/L (21.0-32.0); BLOOD UREA NITROGEN 18 MG/DL (7-18); CHLORIDE 108 MEQ/L (98-107); CREATININE 0.86 MG/DL (0.60-1.30); GLOMERULAR FILTRATION RATE 96 ML/MIN (>89); GLUCOSE,RANDOM 100 MG/DL (74-106); SODIUM (NA) 140 MEQ/L (136-145); TOTAL BILIRUBIN ADULT 0.6 MG/DL (0.2-1.0); TOTAL PROTEIN 7.5 GM/DL (6.4-8.2)
--- NOTE | 2017-07-21 13:17 | HHI.FPPN ---
Subjective Remarks Patient seen and examined this morning. He states that he is feeling pretty good. Feels like he is almost back to his normal self, except for his left shoulder pain. He is unable to fully abduct his arm. Otherwise, no localized weakness, no feelings of confusion, no numbness or tingling. No fevers or chills, no chest pain, no shortness of breath, no abdominal pain, no nausea or vomiting. (Abbie Menjivar MD R1) Objective Vitals Vital Signs Date Time Temp Pulse Resp B/P (MAP) Pulse Ox O2 Delivery O2 Flow Rate FiO2 07/21/17 12:00 98.0 51 18 164/79 (107) 97 07/21/17 06:03 18 07/21/17 05:00 97.3 61 18 166/79 (108) 99 07/21/17 00:00 97.7 51 18 100/55 (70) 96 07/20/17 20:00 97.8 59 18 160/85 (110) 97 07/20/17 20:00 57 I/O 07/20/17 07/20/17 07/20/17 07/21/17 07/21/17 07/21/17 07:00 15:00 23:00 07:00 15:00 23:00 Intake Total 1000 ml Balance 1000 ml Intake IV Total 1000 ml # Voids 3 3 (Abbie Menjivar MD R1) Result Diagram: 07/21/17 0845 07/21/17 0845 Imaging Last Impressions Shoulder MRI 07/21/17 0000 Signed Impressions: Service Date/Time: Friday, July 21, 2017 07:46 - CONCLUSION: 1. 1 cm full thickness tear involving the distal supraspinatus tendon located posteriorly. 2. Mild tendinopathy and thinning of the rotator cuff tendons. 3. Marked hypertrophy and edema involving the acromioclavicular joint. Arnulfo Pham MD Head/Brain Mag Res Venography 07/20/17 0000 Signed Impressions: Service Date/Time: Thursday, July 20, 2017 14:18 - CONCLUSION: Negative for venous thrombosis. Lyle Son MD FACR Shoulder X-Ray 07/19/17 1646 Signed Impressions: Service Date/Time: July 17:20 - CONCLUSION: No evidence of acute process or significant arthropathy. Ramses Salomon MD Brain MRI 07/19/17 1522 Signed Impressions: Service Date/Time: July 16:42 - CONCLUSION: 1. Normal unenhanced and enhanced MRI of the brain. 2. No evidence of acute infarct, hemorrhage, mass, edema or enhancing lesions. Ramses Salomon MD Neck CTA 07/19/17 1446 Signed Impressions: Service Date/Time: July 14:53 - CONCLUSION: 1. No significant carotid flow-limiting stenosis or dissection. 2. Dominant left vertebral artery without vertebral flow-limiting stenosis or dissection. Samson Vinson MD Head CTA 07/19/17 1446 Signed Impressions: Service Date/Time: July 14:53 - CONCLUSION: 1. Unremarkable head CTA examination. Specifically, no evidence of large vessel occlusion. Samson Vinson MD Head CT 07/19/17 0000 Signed Impressions: Service Date/Time: July 14:53 - CONCLUSION: No acute disease. Ramses Salomon MD Objective Remarks GENERAL: Well-nourished, well-developed patient sitting in chair, in no acute distress. SKIN: Warm and dry. HEAD: Normocephalic. EYES: No scleral icterus. No injection or drainage. NECK: Supple, trachea midline. No JVD or lymphadenopathy. CARDIOVASCULAR: Regular rate and rhythm without murmurs, gallops, or rubs. RESPIRATORY: Breath sounds equal bilaterally. No accessory muscle use. GASTROINTESTINAL: Abdomen soft, non-tender, nondistended. EXTREMITIES: No cyanosis, or edema. Unable to fully abduct left arm greater than 45. NEUROLOGICAL: Awake, alert, and oriented x 3. Non-focal. (Abbie Menjivar MD R1) A/P Assessment and Plan 46 year old man being admitted for further evaluation and management following likely a TIA/CVA. (Abbie Menjivar MD R1) Attending Attestation Patient seen and examined. Case reviewed and discussed Agree with plan of care as discussed with me and documented in the resident note. (Kacie Helton MD) Problem List: (1) Tear of left supraspinatus tendon ICD Codes: S46.812A - Strain of other muscles, fascia and tendons at shoulder and upper arm level, left arm, initial encounter Status: Acute Plan: Pt with complaint of left shoulder pain and decreased range of motion on 07/20. States that likely when he passed out, a 250 pound AC unit fell on his shoulder. Left shoulder MRI on 07/21 reveals a 1 cm full-thickness tear involving the distal supraspinatus tendon located posteriorly. Also showed mild tendinopathy and thinning of the rotator cuff tendons. -Consulted orthopedic surgery, appreciate recommendations (2) Left-sided weakness ICD Codes: R53.1 - Weakness Status: Acute Plan: The patient has a history earlier day of admission of dizziness and lightheadedness associated with loss of consciousness and was noted to have left -sided weakness during initial eval here in the ED as well as per , slight left sided facial droop Si/sxs concerning mostly for TIA/CVA, consider also seizure activity, syncope, atypical migraine aura, toxic or metabolic disturbance, medication adverse effect, MS CT head with no acute disease Head and neck CTA are unremarkable Electrolytes are within normal limits EKG significant for sinus bradycardia with HR of 54 bpm Lipid panel reveals a total cholesterol of 201, LDL 123, HDL low at 28.5 Hemoglobin A1c is 4.8, normal Neurology consulted, appreciate recommendations -Hypercoagulable screen ordered given the patient's young age, pending -Brain MRI on 07/19 is normal, no evidence of acute infarct, hemorrhage, mass , edema -MRV on 07/20 is negative for venous thrombosis Cardiology consulted, appreciate recommendations -CINDI performed on 07/20, normal -Loop recorder inserted on 07/20, to detect a possible arrhythmia Continue aspirin 325 mg po daily Start atorvastatin 40 mg p.o. daily Neuro checks q4h Vasotec 1/25 mg IV prn BP > 220/120 Consult PT/OT/ST and case management (3) Bipolar disorder ICD Codes: F31.9 - Bipolar disorder, unspecified Status: Chronic Plan: Restart home seroquel (4) Depression ICD Codes: F32.9 - Major depressive disorder, single episode, unspecified Status: Chronic Plan: Restart home zoloft and bupropion (5) Sex Addiction Status: Chronic Plan: Patient with history of sex addiction Continue at home naltrexone (6) Nutrition, metabolism, and development symptoms ICD Codes: R63.8 - Other symptoms and signs concerning food and fluid intake Status: Acute Plan: Fluids: Tolerating p.o. Electrolytes: within normal limits Nutrition: Heart healthy diet DVT ppx: Heparin 5,000 units sq q8h (Abbie Menjivar MD R1) Problem Qualifiers (1) Tear of left supraspinatus tendon: Qualified Codes: S46.812A - Strain of other muscles, fascia and tendons at shoulder and upper arm level, left arm, initial encounter Abbie Menjivar MD R1 Jul 21, 2017 13:17 Kacie Helton MD Jul 23, 2017 13:57
[2017-07-21] MEDS: NS 1000 ML IV SCH (13:30)
[2017-07-21] MEDS ORDERED: buPROPion HCL 150 MG EXTENDED RELEASE TAB PO SCH (14:00)
[2017-07-21] MEDS: buPROPion HCL 150 MG EXTENDED RELEASE TAB PO SCH (17:23)
--- NOTE | 2017-07-21 20:05 | PD.CONS ---
cc: Joel Maravilla Jr., MD HPI Service Orthopedic Surgeons Consult Requested By Primary Care Physician Unknown Admission Diagnosis Diagnoses: Chief Complaint: Left shoulder pain History of Present Illness 46-year-old right-handed man with history of hypertension, otherwise been very healthy, until he experienced a stroke and some weakness in the left side. He was found unresponsive by his and transported to emergency department. Workup for TIA. Patient does not have any recollection of the event. Denies any recent trauma. He does report intermittent left shoulder pain for the past REVIEW OF SYSTEMS: He denied any chest pain or palpitations. He denies any history colon hypercholesterolemia, diabetes, CT, CABG, stent, angioplasty, AFib, Coumadin; renal, hepatic, or pulmonary disease; thyroid disease, lupus, ulcer, cancer, stroke. SOCIAL HISTORY: Nonsmoker or drinker. No drugs. Lives with his . ALLERGIES: PENICILLIN. Review of Systems Constitutional: DENIES: Diaphoretic episodes, Fatigue, Fever, Weight gain, Weight loss, Chills, Dizziness, Change in appetite, Night Sweats Endocrine: DENIES: Heat/cold intolerance, Polydipsia, Polyuria, Polyphagia Eyes: DENIES: Blurred vision, Diplopia, Eye inflammation, Eye pain, Vision loss , Photosensitivity, Double Vision Ears, nose, mouth, throat: DENIES: Tinnitus, Hearing loss, Vertigo, Nasal discharge, Oral lesions, Throat pain, Hoarseness, Ear Pain, Running Nose, Epistaxis, Sinus Pain, Toothache, Odynophagia Respiratory: DENIES: Apneas, Cough, Snoring, Wheezing, Hemoptysis, Sputum production, Shortness of breath Gastrointestinal: DENIES: Abdominal pain, Black stools, Bloody stools, Constipation, Diarrhea, Nausea, Vomiting, Difficulty Swallowing, Anorexia Past Family Social History Allergies: Coded Allergies: Penicillins (Verified Allergy, Unknown, 07/19/17) Active Ordered Medications Current Medications Medications (Trade) Dose Ordered Sig/Tana Route Start Time Stop Time Status Last Admin (Ecotrin Ec) 325 mg DAILY PO 07/19/17 15:30 07/21/17 08:48 (NS Flush) 2 ml BID IV FLUSH 07/19/17 21:00 07/20/17 22:34 (NS Flush) 2 ml UNSCH PRN IV FLUSH 07/19/17 16:45 (Vasotec Inj) 1.25 mg Q4H PRN IV PUSH 07/19/17 16:45 (NovoLOG SUPPLEMENTAL SCALE) 1 ACHS SQ 07/19/17 17:00 (D50w (Vial) Inj) 50 ml UNSCH PRN IV PUSH 07/19/17 16:45 (Glucagon Inj) 1 mg UNSCH PRN OTHER 07/19/17 16:45 (Heparin Inj) 5,000 units Q8H SQ 07/19/17 16:45 07/21/17 17:24 (Revia) 50 mg HS PO 07/19/17 21:00 07/20/17 22:36 Acetaminophen 65 ml @ 400 mls/hr Q6HR PRN IV 07/19/17 17:15 Lactated Ringer's 1,000 ml @ 30 mls/hr Q24H PRN IV 07/20/17 11:45 07/23/17 11:44 Sodium Chloride 500 ml @ 30 mls/hr [id number] PRN IV 07/20/17 11:45 07/23/17 11:44 (Lopressor) 25 mg COMPLETIONS MANAGER PRN PO 07/20/17 11:45 07/23/17 11:44 (Betadine 5% Antisepsis Kit) 1 applic COMPLETIONS MANAGER PRN EACH NARE 07/20/17 11:45 07/23/17 11:44 (Chlorhexidine 2% Cloth) 3 pack COMPLETIONS MANAGER PRN TOPICAL 07/20/17 11:45 07/23/17 11:44 Sodium Chloride 1,000 ml @ 30 mls/hr Q24H IV 07/20/17 13:30 (Betadine 5% Antisepsis Kit) 2 applic COMPLETIONS MANAGER EACH NARE 07/20/17 13:30 07/23/17 13:29 (Bactroban Nasal 2% Oint) 1 applic COMPLETIONS MANAGER NASAL 07/20/17 13:30 07/23/17 13:29 (Chlorhexidine 2% Cloth) 3 pack COMPLETIONS MANAGER TOPICAL 07/20/17 13:30 07/23/17 13:29 Vancomycin HCl 1000 mg/Sodium Chloride 250 ml @ 250 mls/hr COMPLETIONS MANAGER IV 07/20/17 13:30 07/23/17 13:29 (Toradol Inj) 30 mg Q6H PRN IM 07/20/17 15:30 07/25/17 15:29 07/21/17 14:51 (Lipitor) 40 mg DAILY PO 07/20/17 17:00 07/21/17 08:48 (Wellbutrin Xl 24 Hr) 450 mg DAILY PO 07/21/17 14:00 07/21/17 17:23 (Zoloft) 100 mg HS PO 07/21/17 21:00 (SEROquel) 50 mg HS PO 07/21/17 21:00 Reported Meds & Active Scripts Active Reported Naltrexone (Naltrexone HCl) 50 Mg Tab 50 Mg PO HS Zoloft (Sertraline HCl) 100 Mg Tab 100 Mg PO HS Seroquel (Quetiapine Fumarate) 50 Mg Tab 50 Mg PO HS Klonopin (Clonazepam) 0.5 Mg Tab 0.5 Mg PO DAILY PRN Wellbutrin Xl 24 HR (Bupropion HCl) 150 Mg Tab 450 Mg PO DAILY Take 1 tablet (150mg) with 300mg tablet for a total dose of 450mg Wellbutrin Xl 24 HR (Bupropion HCl) 300 Mg Tab 450 Mg PO DAILY Take 1 tablet (300mg) with 150mg tablet for a total dose of 450mg Physical Exam Vital Signs Vital Signs Date Time Temp Pulse Resp B/P (MAP) Pulse Ox O2 Delivery O2 Flow Rate FiO2 07/21/17 17:17 96 21 07/21/17 16:00 97.9 53 18 167/78 (107) 96 07/21/17 12:00 98.0 51 18 164/79 (107) 97 07/21/17 06:03 18 07/21/17 05:00 97.3 61 18 166/79 (108) 99 07/21/17 00:00 97.7 51 18 100/55 (70) 96 Physical Exam Alert awake and oriented x 3. No acute distress. Neck: No pain with any range of motion and neck. Pulmonary: Normal respiratory effort. Right upper extremity exam: Intact sensation distally in median, ulnar, and radial nerve. Intact motor in anterior interosseous, posterior interosseous, and ulnar nerve. 2+ radial artery pulses. Good cap refill. Left upper extremity: There are intact. Full passive range of motion left shoulder. Positive Neer's, positive Moreno. 4/5 external rotation. 3/5 abduction strength. Negative cross body compression test. Positive impingement sign. 2+ radial artery pulses. Good cap refill. LUE: Neurovascularly intact Laboratory Laboratory Tests Test 07/21/17 08:45 White Blood Count 7.3 Red Blood Count 5.10 Hemoglobin 15.0 Hematocrit 44.1 Mean Corpuscular Volume 86.4 Mean Corpuscular Hemoglobin 29.5 Mean Corpuscular Hemoglobin Concent 34.1 Red Cell Distribution Width 13.0 Platelet Count 266 Mean Platelet Volume 8.3 Neutrophils (%) (Auto) 68.5 Lymphocytes (%) (Auto) 22.8 Monocytes (%) (Auto) 6.5 Eosinophils (%) (Auto) 1.7 Basophils (%) (Auto) 0.5 Neutrophils # (Auto) 5.0 Lymphocytes # (Auto) 1.7 Monocytes # (Auto) 0.5 Eosinophils # (Auto) 0.1 Basophils # (Auto) 0.0 CBC Comment DIFF FINAL Differential Comment Blood Urea Nitrogen 18 Creatinine 0.86 Random Glucose 100 Total Protein 7.5 Albumin 3.9 Calcium Level 9.0 Alkaline Phosphatase 75 Aspartate Amino Transf (AST/SGOT) 18 Alanine Aminotransferase (ALT/SGPT) 40 Total Bilirubin 0.6 Sodium Level 140 Potassium Level 4.1 Chloride Level 108 Carbon Dioxide Level 25.8 Anion Gap 6 Estimat Glomerular Filtration Rate 96 Result Diagram: 07/21/17 0845 07/21/17 0845 Imaging 1 cm full thickness tear involving the distal supraspinatus tendon located posteriorly. 2. Mild tendinopathy and thinning of the rotator cuff tendons. 3. Marked hypertrophy and edema involving the acromioclavicular joint. Assessment & Plan Assessment and Plan 46-year-old male previously healthy sustaining a TIA presented complaining of left shoulder pain. He is unaware if he hit the shoulder while falling and losing consciousness. He complains of left shoulder pain with difficulty with range of motion above the head and horizontal line, associated with weakness. On exam his is distally neurovascular intact with good shoulder range of motion and some weakness in rotator cuff consistent with cuff tendinitis. MRI does reveal a rotator cuff tear. However patient does have maintained rotator cuff strength. I recommend outpatient follow-up and treatment of cuff tendinitis with impingement with corticosteroid injection and physical therapy. There is no need for any surgical intervention at this time. Patient should follow-up in the office with MALIK Turpin. Joel Maravilla Jr., MD Jul 21, 2017 20:05
[2017-07-21] MEDS ORDERED: QUEtiapine FUMARATE 25 MG TAB PO SCH (21:00)
[2017-07-21] MEDS ORDERED: SERTRALINE HCL 100 MG TAB PO SCH (21:00)
--- NOTE | 2017-07-21 21:08 | HM ---
Date Performed: 07/19/2017 Time Performed: 20:24:00 HOOKUP DATE: 07/19/17 08:24:00 PM Yennifer ANALYSIS START TIME: 07/19/2017 8:29:00 PM ANALYSIS END TIME: 07/20/2017 2:12:52 PM PATIENT AGE: 46 PATIENT HEIGHT PATIENT WEIGHT DRUG LIST PATIENT DIAGNOSIS: poss stroke TEST NARRATIVE: The patient's average heart rate was 59 BPM. No episodes of tachycardia wer e noted. Heart rates less than 50 BPM were noted 7% of the time. No pauses exceeding 2.0 seconds were noted. No ventricular ectopics were noted. 5 supraventricular ectopics, which represent ed < 1% of the total beat count, were noted. The highest supraventricular ectopic frequency occurred from 01:00 AM to 02:00 AM Fri. During this time 3 SVE(s) occurred. No episodes of ST depression (defined as -1.0 mm or more) were noted in channel 1. No episodes of ST depression (defined as -1.0 mm or more) were noted in channel 2. No episodes of ST depression (defined as -1.0 mm or more) were noted in channel 3. NO DIARY RETURNED TEST INTERPRETATION: Agree with the narative summary provided. Signed by : Abran Robert
[2017-07-21] MEDS: NALTREXONE HCL 50 MG TAB PO SCH (23:49)
[2017-07-22] VITALS: PULSE 61
[2017-07-22 00:45] VITALS: BP 139/69; PULSE 54; RESP 16; TEMP 97.1; O2SAT 97
[2017-07-22 04:45] VITALS: BP 138/82; PULSE 54; RESP 16; TEMP 98; O2SAT 95
--- NOTE | 2017-07-22 07:36 | HHI.FPPN ---
Subjective Remarks No acute events overnight. Remains afebrile. BPs ranging 130s-170s/60s-80s over past 24 hours. Patient states he feels well overall this morning. He states his left shoulder pain has improved and denies any pain currently. He denies any new focal neuro deficit. He specifically denies fevers or chills, chest pain, dyspnea, cough, lower extremity swelling. His and son are present at bedside. 's only question is regarding the patient potentially having sleep apnea. She sleeps beside him at night and endorses episodes of apnea as well as snoring. Family contributes the patient having stress partially contributing to his elevated blood pressures. The patient is otherwise without complaints or concerns. (Gigi Rios MD R2) Objective Vitals Vital Signs Date Time Temp Pulse Resp B/P (MAP) Pulse Ox O2 Delivery O2 Flow Rate FiO2 07/22/17 00:45 97.1 54 16 139/69 (92) 97 07/22/17 00:00 61 07/21/17 23:30 98.0 50 16 178/74 (108) 95 07/21/17 20:00 52 07/21/17 17:17 96 21 07/21/17 16:00 97.9 53 18 167/78 (107) 96 07/21/17 12:00 98.0 51 18 164/79 (107) 97 I/O 07/21/17 07/21/17 07/21/17 07/22/17 07/22/17 07/22/17 07:00 15:00 23:00 07:00 15:00 23:00 Intake Total 1000 ml Balance 1000 ml Intake Oral 1000 ml # Voids 3 2 # Bowel Movements 0 (Gigi Rios MD R2) Result Diagram: 07/21/17 0845 07/21/17 0845 Objective Remarks GENERAL: Well-nourished, well-developed patient lying in bed, in no acute distress. SKIN: Warm and dry. HEAD: Normocephalic. EYES: No scleral icterus. No injection or drainage. NECK: Supple, trachea midline. No JVD or lymphadenopathy. CARDIOVASCULAR: Regular rate and rhythm without murmurs, gallops, or rubs. RESPIRATORY: Breath sounds equal bilaterally. No accessory muscle use. GASTROINTESTINAL: Abdomen soft, non-tender, nondistended. EXTREMITIES: No cyanosis, or edema. Unable to fully abduct left arm greater than 45. NEUROLOGICAL: Awake, alert, and oriented x 3. Non-focal. (Gigi Rios MD R2) A/P Assessment and Plan 46 year old man admitted for evaluation and management following likely a TIA/ CVA. Discharge Planning Anticipate discharge home today 07/22 with outpatient OT (Gigi Rios MD R2) Attending Attestation Patient seen and examined. Case reviewed and discussed Agree with plan of care as discussed with me and documented in the resident note. (Kacie Helton MD) Problem List: (1) Tear of left supraspinatus tendon ICD Codes: S46.812A - Strain of other muscles, fascia and tendons at shoulder and upper arm level, left arm, initial encounter Status: Acute Plan: Pt with complaint of left shoulder pain and decreased range of motion on 07/20. States that likely when he passed out, a 250 pound AC unit fell on his shoulder. Left shoulder MRI on 07/21 reveals a 1 cm full-thickness tear involving the distal supraspinatus tendon located posteriorly. Also showed mild tendinopathy and thinning of the rotator cuff tendons. Consulted orthopedic surgery - Recommending outpatient follow up and treatment of cuff tendinitis with corticosteroid injection and PT - No surgical intervention at this time - Patient will follow up with Dr. Osorio (2) Left-sided weakness ICD Codes: R53.1 - Weakness Status: Acute Plan: The patient has a history earlier day of admission of dizziness and lightheadedness associated with loss of consciousness and was noted to have left -sided weakness during initial eval in the ED as well as per , slight left sided facial droop Si/sxs concerning mostly for TIA/CVA, consider also seizure activity, syncope, atypical migraine aura, toxic or metabolic disturbance, medication adverse effect, MS CT head with no acute disease Head and neck CTA are unremarkable Electrolytes are within normal limits EKG significant for sinus bradycardia with HR of 54 bpm Lipid panel reveals a total cholesterol of 201, LDL 123, HDL low at 28.5 Hemoglobin A1c is 4.8, normal Neurology consulted, appreciate recommendations -Hypercoagulable screen ordered given the patient's young age, pending -Brain MRI on 07/19 is normal, no evidence of acute infarct, hemorrhage, mass , edema -MRV on 07/20 is negative for venous thrombosis Cardiology consulted, appreciate recommendations -CINDI performed on 07/20, normal -Loop recorder inserted on 07/20, to detect a possible arrhythmia Continue aspirin 325 mg po daily for 2 weeks then daily baby aspiring Continue atorvastatin 40 mg p.o. daily Neuro checks q4h Vasotec 1/25 mg IV prn BP > 220/120 Consult PT/OT/ST and case management (3) Bipolar disorder ICD Codes: F31.9 - Bipolar disorder, unspecified Status: Chronic Plan: Restart home seroquel (4) Depression ICD Codes: F32.9 - Major depressive disorder, single episode, unspecified Status: Chronic Plan: Restart home zoloft and bupropion (5) Sex Addiction Status: Chronic Plan: Patient with history of sex addiction Continue at home naltrexone (6) Hypertension ICD Codes: I10 - Essential (primary) hypertension Plan: BPs noted to be elevated past 24 hours ranging 130s-170s systolic over 60s-80s Will start lisinopril and provide prescription for patient on discharge (7) Nutrition, metabolism, and development symptoms ICD Codes: R63.8 - Other symptoms and signs concerning food and fluid intake Status: Acute Plan: Fluids: per PO Electrolytes: within normal limits Nutrition: Heart healthy diet DVT ppx: Heparin 5,000 units sq q8h (Gigi Rios MD R2) Problem Qualifiers (1) Tear of left supraspinatus tendon: Qualified Codes: S46.812A - Strain of other muscles, fascia and tendons at shoulder and upper arm level, left arm, initial encounter Gigi Rios MD R2 Jul 22, 2017 07:36 Kacie Helton MD Jul 23, 2017 13:57
[2017-07-22 08:00] VITALS: BP 140/67; PULSE 57; RESP 18; TEMP 98; O2SAT 96
[2017-07-22] MEDS: INSULIN ASPART SUPPLEMENTAL SCALE SQ SCH (08:00)
[2017-07-22 08:08] LABS: HEMATOCRIT 42.3 % (39.0-51.0); MEAN CELL VOLUME 84.1 FL (80.0-100.0); MEAN CORPUSCULAR HEMOGLOBIN 29.9 PG (27.0-34.0); MEAN CORPUSCULAR HGB CONC 35.5 % (32.0-36.0); MEAN PLATELET VOLUME 8.4 FL (7.0-11.0); PLATELET COUNT 249 TH/MM3 (150-450); RED BLOOD COUNT 5.02 MIL/MM3 (4.50-5.90); RED CELL DISTRIBUTION WIDTH 12.8 % (11.6-17.2); WHITE BLOOD COUNT 7.8 TH/MM3 (4.0-11.0)
[2017-07-22 08:48] LABS: BICARBONATE 26.1 MEQ/L (21.0-32.0); CALCIUM 8.5 MG/DL (8.5-10.1); CREATININE 0.8 MG/DL (0.60-1.30)
[2017-07-22] MEDS: HEPARIN SODIUM - SQ 10,000 UNITS/ML VIAL SQ SCH (10:08)
[2017-07-22] MEDS: ASPIRIN EC 325 MG TABEC PO SCH (10:09)
[2017-07-22] MEDS: buPROPion HCL 150 MG EXTENDED RELEASE TAB PO SCH (10:09)
[2017-07-22] MEDS: ATORVASTATIN 40 MG TAB PO SCH (10:09)
[2017-07-22 10:14] VITALS: O2SAT 96
--- NOTE | 2017-07-22 11:22 | HHI.DCPOC ---
Discharge Care Plan Diagnosis: (1) Tear of left supraspinatus tendon (2) TIA (transient ischemic attack) (3) Left-sided weakness (4) Hypertension Goals to Promote Your Health * To prevent worsening of your condition and complications, follow up with your primary care physician and neurologist after hospital discharge and take all of your medications as prescribed. Directions to Meet Your Goals Take your medications as prescribed Follow your dietary instruction Follow activity as directed Keep your appointments as scheduled Take your immunizations and boosters as scheduled If your symptoms worsen call your PCP, if no PCP go to Urgent Care Center or Emergency Room Smoking is Dangerous to Your Health. Avoid second hand smoke Call the 24-hour hour crisis hotline for domestic abuse at Gigi Rios MD R2 Jul 22, 2017 11:22
[2017-07-22] MEDS ORDERED: ASPI325T33 PO (11:23)
[2017-07-22] MEDS ORDERED: ASPI-516 CHEW (11:23)
[2017-07-22] MEDS ORDERED: ATOR40TA16 PO (11:23)
[2017-07-22] MEDS ORDERED: LISI10TA3 PO (11:24)
--- NOTE | 2017-07-22 11:43 | HHI.FF ---
Face to Face Verification Diagnosis: (1) Tear of left supraspinatus tendon Occupational Therapy Order: Evaluate and Treat I have seen patient Arnulfo Yancey on 07/22/17. My clinical findings support the need for the requested home health care services because: Deconditioned w/ increased weakness I certify that my clinical findings support that this patient is homebound because: Unsafe to leave home unassisted Gigi Rios MD R2 Jul 22, 2017 11:43
[2017-07-22 11:44] VITALS: BP 164/74; PULSE 58; RESP 18; TEMP 97.8; O2SAT 94
--- NOTE | 2017-07-22 12:04 | HHI.DS ---
Discharge Summary Admission Date Jul 19, 2017 at 15:31 Discharge Date: Jul 22, 2017 Admitting Diagnosis TIA (1) Left-sided weakness Diagnosis: Principal Plan: The patient has a history earlier day of admission of dizziness and lightheadedness associated with loss of consciousness and was noted to have left -sided weakness during initial eval in the ED as well as per , slight left sided facial droop Si/sxs concerning mostly for TIA/CVA, consider also seizure activity, syncope, atypical migraine aura, toxic or metabolic disturbance, medication adverse effect, MS CT head with no acute disease Head and neck CTA are unremarkable Electrolytes are within normal limits EKG significant for sinus bradycardia with HR of 54 bpm Lipid panel reveals a total cholesterol of 201, LDL 123, HDL low at 28.5 Hemoglobin A1c is 4.8, normal Neurology consulted, appreciate recommendations -Hypercoagulable screen ordered given the patient's young age, pending -Brain MRI on 07/19 is normal, no evidence of acute infarct, hemorrhage, mass , edema -MRV on 07/20 is negative for venous thrombosis Cardiology consulted, appreciate recommendations -CINDI performed on 07/20, normal -Loop recorder inserted on 07/20, to detect a possible arrhythmia Continue aspirin 325 mg po daily for 2 weeks then daily baby aspiring Continue atorvastatin 40 mg p.o. daily Neuro checks q4h Vasotec 1/25 mg IV prn BP > 220/120 Consult PT/OT/ST and case management ICD Codes: R53.1 - Weakness Status: Acute (2) Tear of left supraspinatus tendon Diagnosis: Principal Plan: Pt with complaint of left shoulder pain and decreased range of motion on 07/20. States that likely when he passed out, a 250 pound AC unit fell on his shoulder. Left shoulder MRI on 07/21 reveals a 1 cm full-thickness tear involving the distal supraspinatus tendon located posteriorly. Also showed mild tendinopathy and thinning of the rotator cuff tendons. Consulted orthopedic surgery - Recommending outpatient follow up and treatment of cuff tendinitis with corticosteroid injection and PT - No surgical intervention at this time - Patient will follow up with Dr. Osorio ICD Codes: S46.812A - Strain of other muscles, fascia and tendons at shoulder and upper arm level, left arm, initial encounter Status: Acute (3) Bipolar disorder Diagnosis: Secondary Plan: Restart home seroquel ICD Codes: F31.9 - Bipolar disorder, unspecified Status: Chronic (4) Depression Diagnosis: Secondary Plan: Restart home zoloft and bupropion ICD Codes: F32.9 - Major depressive disorder, single episode, unspecified Status: Chronic (5) Sex Addiction Diagnosis: Secondary Plan: Patient with history of sex addiction Continue at home naltrexone Status: Chronic (6) Hypertension Diagnosis: Secondary Plan: BPs noted to be elevated past 24 hours ranging 130s-170s systolic over 60s-80s Will start lisinopril and provide prescription for patient on discharge ICD Codes: I10 - Essential (primary) hypertension (7) Nutrition, metabolism, and development symptoms Diagnosis: Secondary Plan: Fluids: per PO Electrolytes: within normal limits Nutrition: Heart healthy diet DVT ppx: Heparin 5,000 units sq q8h ICD Codes: R63.8 - Other symptoms and signs concerning food and fluid intake Status: Acute Consultants Neurology, Orthopedic surgery Brief History The patient is a pleasant 46 year old man brought to the ED for evaluation of lightheadedness and dizziness. The patient states he was driving to a job interview earlier today a little before 13:00 when he started to feel dizzy. He states this resolved until he arrived at that site and he began to feel more dizzy and lightheaded so he got back into his truck in the passenger side and called his . He states he must have lost consciousness in the truck and the next thing he remembers he was being driven to the ED. He remembers someone asking him to give them a smile. No one else was in the truck when he lost consciousness. His states that he was progressively taking longer to reply back to her over the phone until eventually he was not responding on the other line. His states earlier in the ED the patient was unable to move any of his extremities however at time of this evaluation he has markedly improved and currently he is able to move all extremities. He endorses mild left hand weakness. Denies right hand or leg weakness, and denies left lower extremity weakness. He states he has no prior history of a similar episode as this. Denies a history of seizures. He denies chest pain or palpitations today or yesterday. He has good PO intake of both solids and water earlier in the day and states he had a normal daily PO intake. He denies noticing any focal neuro deficit such as weakness or paraesthesias while driving to his job interview earlier today. He denies confusion. He states he does not take an aspirin daily. Him and his endorse his blood pressure being elevated recently as high as into the 150s /90s however nothing higher. Of note, his does state she noticed a very slight left-sided facial droop when initially coming into the ED. He endorses a headache currently. States the pain is moderate, diffuse and ache- like in nature. He states he does not usually get headaches. Denies visual changes; denies diplopia, blurry vision, loss of vision. 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 He states he was at a school basketball game a few years ago when the buzzer went off. He subsequently developed tinnitus for several months until he progressively lost hearing. He states he never had a formal evaluation of this. He reports normal hearing of his left ear. CBC/BMP: 07/22/17 0654 07/22/17 0654 Significant Findings Laboratory Tests Test 07/19/17 14:45 07/19/17 17:43 07/19/17 23:00 07/20/17 06:56 White Blood Count 12.4 TH/MM3 (4.0-11.0) Neutrophils (%) (Auto) 70.5 % (16.0-70.0) Neutrophils # (Auto) 8.7 TH/MM3 (1.8-7.7) Troponin I LESS THAN 0.02 NG/ML Calcium Level 8.2 MG/DL (8.5-10.1) Chloride Level 111 MEQ/L (98-107) Urine Specific [place] 1.036 (1.002-1.035) Triglycerides Level 246 MG/DL (42-150) Cholesterol Level 201 MG/DL (120-200) LDL Cholesterol 123 MG/DL (0-99) HDL Cholesterol 28.5 MG/DL (40.0-60.0) Folate 19.3 NG/ML (3.1-17.5) Free Thyroxine 0.75 NG/DL (0.76-1.46) Test 07/21/17 08:45 07/22/17 06:54 Chloride Level 108 MEQ/L (98-107) 109 MEQ/L (98-107) Imaging Head CT 07/19 showing no acute disease Head and neck CTA unremarkable MRI brain nml, without evidence for acute infarct or hemorrhage Head/Brain MRV negative for venous thrombosis Shoulder MRI showing 1cm full thickness tear involving the distal supraspinatus tendon PE at Discharge GENERAL: Well-nourished, well-developed patient lying in bed, in no acute distress. SKIN: Warm and dry. HEAD: Normocephalic. EYES: No scleral icterus. No injection or drainage. NECK: Supple, trachea midline. No JVD or lymphadenopathy. CARDIOVASCULAR: Regular rate and rhythm without murmurs, gallops, or rubs. RESPIRATORY: Breath sounds equal bilaterally. No accessory muscle use. GASTROINTESTINAL: Abdomen soft, non-tender, nondistended. EXTREMITIES: No cyanosis, or edema. Unable to fully abduct left arm greater than 45. NEUROLOGICAL: Awake, alert, and oriented x 3. Non-focal. Hospital Course The patient was admitted and managed for a likely TIA. Patient was also followed by neurology. Imaging studies of the head and neck were unremarkable as above. The patient had a transesophageal echocardiogram which showed a normal EF in the range of 60-65% and a negative bubble study, as well as a loop recorder placed by cardiology on 07/20. A hypercoagulable workup was ordered per neurology. The patient following admission reported left shoulder pain and likely a traumatic injury when he had his syncopal episode prior to admission. The patient had a shoulder MRI with findings noted above. Orthopedic surgery was consulted and recommendations outpatient follow up for corticosteroid injection and physical therapy. The patient's neurological symptoms returned to baseline after admission, and the patient left the hospital with no significant focal neuro deficit. PT regarding the patient's TIA recommended no home PT, OT recommended continued OT as an outpatient. The patient was started on lisinopril 10 mg daily for control of his blood pressure. Pt Condition on Discharge: Stable Discharge Disposition: Discharge Home Discharge Instructions DIET: Follow Instructions for: Heart Healthy Diet Activities you can perform: Regular-No Restrictions Follow up Referrals: Neurology - 1 Week with Hermes Soria MD Orthopedics - 1 Week with Iam Osorio MD PCP Follow-up - 1 Week New Orders: BASIC METABOLIC PROF - 2 Weeks New Medications: Aspirin (Aspirin) 81 Mg Chew 81 MG CHEW DAILY, #30 TAB 0 Refills Lisinopril (Lisinopril) 10 Mg Tab 10 MG PO DAILY, #30 TAB [address] (Aspirin EC) 325 Mg Tabdr 325 MG PO DAILY, #10 TAB Atorvastatin (Atorvastatin) 40 Mg Tab 40 MG PO DAILY, #30 TAB Continued Medications: Bupropion HCl ER 24 HR (Wellbutrin Xl 24 HR) 300 Mg Tab 450 MG PO DAILY for Control Depression, TAB 0 Refills Take 1 tablet (300mg) with 150mg tablet for a total dose of 450mg Bupropion HCl ER 24 HR (Wellbutrin Xl 24 HR) 150 Mg Tab 450 MG PO DAILY for Control Depression, TAB 0 Refills Take 1 tablet (150mg) with 300mg tablet for a total dose of 450mg Clonazepam (Klonopin) 0.5 Mg Tab 0.5 MG PO DAILY PRN for SEVERE ANXIETY, #60 TAB 0 Refills Naltrexone (Naltrexone) 50 Mg Tab 50 MG PO HS, TAB 0 Refills Quetiapine (Seroquel) 50 Mg Tab 50 MG PO HS, #30 TAB 0 Refills Sertraline (Zoloft) 100 Mg Tab 100 MG PO HS, #30 TAB 0 Refills Gigi Rios MD R2 Jul 22, 2017 12:04
[2017-07-23 14:12] LABS: PROTEIN C ACTIVITY 106 % (70 - 150); PROTEIN S ACTIVITY 110 % (65 - 160)
[2017-07-23 15:52] LABS: DRVVT 1:1 MIX ND (CORRECTED); DRVVT CONFIRM NEGATIVE (NEGATIVE); HEXAGONAL PHASE CONFIRM ND (NEGATIVE)
[2017-07-23 16:10] LABS: CARDIOLIPIN IGG AB <9.4 GPL; CARDIOLIPIN IGM AB <9.4 MPL
[2017-07-23 21:56] LABS: ALB/GLOB RATIO (SPE) 1.77 (1.39-2.23)
[2017-07-23 23:52] LABS: FACTOR VIII(8) ACTIVITY 105 (50-180)
[2017-07-24 03:52] LABS: ANTI-THROMBIN III ACT 92 (80-120)
== END 2017-07-22 12:13 | disposition home or self-care (01) | DRG 42 ==
LOC: NEPC 14:31 → NEDA 15:31 → N05B 18:52
PROVIDERS: ADMIT Family Medicine; ATTEND Family Medicine
PROC: 0JH632Z Insertion of Monitoring Device into Chest Subcutaneous Tissue and Fascia, Percutaneous Approach (ICD-10-PCS; principal; 2017-07-20)
DX: G45.9 Transient cerebral ischemic attack, unspecified (principal); I10 Essential (primary) hypertension; R29.704 NIHSS score 4; H91.91 Unspecified hearing loss, right ear; F31.9 Bipolar disorder, unspecified; R00.1 Bradycardia, unspecified; S46.012A Strain of muscle(s) and tendon(s) of the rotator cuff of left shoulder, initial encounter; S46.812A Strain of other muscles, fascia and tendons at shoulder and upper arm level, left arm, initial encounter; W20.8XXA Other cause of strike by thrown, projected or falling object, initial encounter
CPT/HCPCS: 70450; 70496; 70498; 70546; 70553; 73030; 73221; 80048; 80053; 80061; 80307; 81001; 81240; 81241; 81291; 82607; 82746; 82948; 83036; 83921; 84165; 84207; 84425; 84439; 84443; 84450; 84460; 84484; 85025; 85027; 85240; 85300; 85303; 85306; 85384; 85597; 85610; 85613; 85652; 85730; 86038; 86147; 86592; 86850; 86900; 86901; 93005; 93225; 93226; 93312; 93320; 93325; A9579; J1644; J1885; J7030; Q9967